=== PATIENT | male | born 1975 | race Caucasian/White ===

== ENCOUNTER 2016-10-13 16:11 | Inpatient (IN) | payer BC ==
[~2016-10-13 16:11] MED LIST: BRIDION 200MG/2ML IV ONE; DILAUDID 2 MG INJECTION IV ONE; DIPRIVAN 200 MG/20 ML IV ONE; Decadron 4 MG INJ IV ONE; Quelicin Fliptop 200 MG/10 ML IJ ONE; SUBLIMAZE 100 MCG/2 ML IV ONE; TORAdol 30 mg Injection IJ ONE; Versed 2 MG/2 ML Injection IV ONE; Zemuron 100 MG/10 ML IJ ONE; Zofran 4 MG/2 ML VIAL IV ONE
[2016-10-13] MEDS ORDERED: Zofran 4 MG/2 ML VIAL IV ONE (16:29)
[2016-10-13] MEDS ORDERED: Hydromorphone 1 mg/ml Ampule IV ONE (16:29)
[2016-10-13] MEDS ORDERED: Sodium Chloride 0.9% 1000 ML 1,000 ML IV SCH ×2 (16:30→18:15)
[2016-10-13] MEDS ORDERED: Zofran 4 MG/2 ML VIAL ONE (16:37)
[2016-10-13] MEDS ORDERED: Sodium Chloride 0.9% 1000 ML 1,000 ML ONE (16:37)
[2016-10-13] MEDS ORDERED: Hydromorphone 1 mg/ml Ampule ONE (16:37)
[2016-10-13 16:41] LABS: BASOPHIL % 0.1 % (0.0-0.4); Eosinophil % 1.5 % (0.00-5.0); Granulocytes % 81.8 % (36.0-66.0); Lymphocytes % 8.8 % (24.0-44.0); Mean Cell Volume 82.3 fl (78-100); Mean Corpuscular Hemoglobin 27.1 pg (26-32); Mean Platelet Volume 9.4 fl (6-9.5); Monocytes % 7.8 % (0.0-12.0); Platelet Count 283 K/mm3 (150-450); Red Blood Count 5.31 M/mm3 (4.1-5.6); Red Cell Distribution Width 13.9 % (11.5-14.0); White Blood Count 13.5 K/mm3 (4.0-10.5)
--- NOTE | 2016-10-13 16:53 | ERPHSYRPT ---
- History of Present Illness Time Seen by Provider: 10/13/16 16:14 Historian: patient, family Exam Limitations: no limitations Patient Subjective Stated Complaint: "I think that I pulled a muscle tuesday evening lifting wood." stated sharp pain that is revied with activity modification and aleve. points to mid abd all across as location of pain Triage Nursing Assessment: aox3, breathing easy unlabored, skin pink warm dry, steady gait Physician History: patient awoke with abdominal pain in am; thinks he may have pulled something as had abdominal pain worse when he moves or bends over; no trauma; was doing a lot of lifting and pulling this weekend; no N&V; appetite ok; BM and voids ok; no travel; no exposures; no fever; no prior hx Timing/Duration: today, gradual onset, worse Activities at Onset: rest Quality: aching Abdominal Pain Onset Location: RLQ (worst), epigastric (onset), generalized abdomen Pain Radiation: no radiation Severity of Pain-Max: severe Severity of Pain-Current: moderate Modifying Factors: Improves With: breathing, movement, palpation, position Associated Symptoms: heartburn Previous symptoms: no prior history Allergies/Adverse Reactions: No Known Drug Allergies Allergy (Unverified 01/17/15 18:19) Home Medications: No Reportable Medications [No Reported Medications] 10/13/16 [History] Hx Tetanus, Diphtheria Vaccination/Date Given: Yes Hx Influenza Vaccination/Date Given: No - Review of Systems Constitutional: No Symptoms Eyes: No Symptoms Ears, Nose, & Throat: No Symptoms Respiratory: No Cough, No Dyspnea, No Wheezing Cardiac: No Chest Pain, No Palpitations, No Syncope Abdominal/Gastrointestinal: Abdominal Pain, Nausea (slight), No Vomiting, No Diarrhea, No Constipation Genitourinary Symptoms: No Symptoms Musculoskeletal: No Symptoms Skin: No Symptoms Neurological: No Symptoms Psychological: No Symptoms Endocrine: No Symptoms Hematologic/Lymphatic: No Symptoms Immunological/Allergic: No Symptoms - Past Medical History Pertinent Past Medical History: No - Past Surgical History Past Surgical History: No - Social History Smoking Status: Current every day smoker Exposure to second hand smoke: No Alcohol Use: Socially Drug Use: none Patient Lives Alone: No Significant Family History: no pertinent family hx - Nursing Vital Signs Nursing Vital Signs: Initial Vital Signs Temperature 98.0 F 10/13/16 16:18 Pulse Rate 87 10/13/16 16:18 Respiratory Rate 16 10/13/16 16:18 Blood Pressure 125/78 10/13/16 16:18 O2 Sat by Pulse Oximetry 99 10/13/16 16:18 Pain Scale Pain Intensity 3 - Physical Exam General Appearance: moderate distress (abdominal pain) Eye Exam: PERRL/EOMI, eyes nml inspection, No photophobia Ears, Nose, Throat Exam: normal ENT inspection, TMs normal, pharynx normal, moist mucous membranes Neck Exam: normal inspection, non-tender, supple, full range of motion, No JVD Respiratory Exam: normal breath sounds, lungs clear, airway intact, No chest tenderness, No respiratory distress Cardiovascular Exam: regular rate/rhythm, normal heart sounds, capillary refill <2 sec, No murmur Gastrointestinal/Abdomen Exam: soft, normal bowel sounds (to slightly hyperactive), tenderness (RLQ>RUQ> epig and LLQ), guarding, rebound (suggests early), No pulsatile mass, No hernia, No hepatomegaly, No organomegaly Male Genitalia Exam: normal genitalia Rectal Exam: deferred Back Exam: normal inspection, normal range of motion, No CVA tenderness, No vertebral tenderness Extremity Exam: normal inspection, normal range of motion, No pedal edema Neurologic Exam: alert, oriented x 3, cooperative, community health advocate II-XII nml as tested, normal mood/affect, nml cerebellar function, nml station & gait, sensation nml Skin Exam: normal color, warm, dry, No rash SpO2 Interpretation: normal SpO2: 99 Oxygen Delivery: Room Air - Course Nursing assessment & vital signs reviewed: Yes - CT Exams Abdomen/Pelvis CT Interpretation: Tele-radiologist Report, appendicitis Ordered Tests: Active Orders 24 hr Category Date Time Status Re-Check Vital Signs STAT Care 10/13/16 16:29 Active ABDOMEN AND PELVIS W/0 CONTRAS [CT] Stat Exams 10/13/16 16:31 Completed AMYLASE Stat Lab 10/13/16 16:38 Completed CBC W DIFF Stat Lab 10/13/16 16:38 Completed CMP Stat Lab 10/13/16 16:38 Completed CULTURE,URINE Stat Lab 10/13/16 17:00 Received LIPASE Stat Lab 10/13/16 16:38 Completed UA W/ MICROSCOPIC Stat Lab 10/13/16 17:00 Completed Medication Summary Generic Name Dose Route Start Last Admin Trade Name Freq PRN Reason Stop Dose Admin Sodium Chloride 1,000 mls @ 100 mls/hr 10/13/16 16:30 10/13/16 16:38 Sodium Chloride 0.9% 1000 Ml IV 11/12/16 16:29 100 mls/hr .Q10H RAUL Administration Discontinued Medications Generic Name Dose Route Start Last Admin Trade Name Vincentq PRN Reason Stop Dose Admin Hydromorphone HCl 1 mg 10/13/16 16:29 10/13/16 16:38 Hydromorphone 1 Mg/Ml Ampule IV 10/13/16 16:30 1 mg STAT ONE Administration Hydromorphone HCl Confirm 10/13/16 16:37 Hydromorphone 1 Mg/Ml Ampule Administered 10/13/16 16:38 Dose 1 mg .ROUTE .STK-MED ONE Ondansetron HCl 4 mg 10/13/16 16:29 10/13/16 16:38 Zofran 4 Mg/2 Ml Vial IV 10/13/16 16:30 4 mg STAT ONE Administration Ondansetron HCl Confirm 10/13/16 16:37 Zofran 4 Mg/2 Ml Vial Administered 10/13/16 16:38 Dose 4 mg .ROUTE .STK-MED ONE Lab/Rad Data: Laboratory Result Diagrams 10/13/16 16:38 10/13/16 16:38 Laboratory Results 10/13/16 10/13/16 10/13/16 Range/Units 17:00 16:38 16:38 WBC 13.5 H (4.0-10.5) K/mm3 RBC 5.31 (4.1-5.6) M/mm3 Hgb 14.4 (12.5-18.0) gm/dl Hct 43.7 (42-50) % MCV 82.3 (78-100) fl MCH 27.1 (26-32) pg MCHC 33.0 (32-36) g/dl RDW 13.9 (11.5-14.0) % Plt Count 283 (150-450) K/mm3 MPV 9.4 (6-9.5) fl Gran % 81.8 H (36.0-66.0) % Lymphocytes % 8.8 L (24.0-44.0) % Monocytes % 7.8 (0.0-12.0) % Eosinophils % 1.5 (0.00-5.0) % Basophils % 0.1 (0.0-0.4) % Basophils # 0.02 (0-0.4) Sodium 140 (136-145) mEq/L Potassium 3.8 (3.5-5.1) mEq/L Chloride 103 (98-107) mEq/L Carbon Dioxide 26.9 (21-32) mEq/L Anion Gap 13.6 (5-15) MEQ/L BUN 10 (9-20) mg/dL Creatinine 1.01 (0.55-1.30) mg/dl Estimated GFR > 60 ML/MIN Glucose 103 (70-110) MG/DL Calcium 9.2 (8.5-10.1) mg/dL Total Bilirubin 0.60 (0.2-1.0) mg/dL AST 13 L (15-37) U/L ALT 18 (12-78) U/L Alkaline Phosphatase 112 (46-116) U/L Serum Total Protein 7.2 (6.4-8.2) gm/dL Albumin 3.8 (3.4-5.0) g/dL Amylase 54 (25-115) U/L Lipase 66 L (73-393) U/L Ur Collection Type VOID Urine Color YELLOW (YELLOW) Urine Appearance CLEAR (CLEAR) Urine pH 5.0 (5-6) Ur Specific [place] 1.015 (1.005-1.025) Urine Protein NEGATIVE (Negative) Urine Ketones NEGATIVE (NEGATIVE) Urine Blood 5-10 (0-5) Roberth/ul Urine Nitrite NEGATIVE (NEGATIVE) Urine Bilirubin SMALL (NEGATIVE) Urine Urobilinogen NORMAL (0-1) mg/dL Ur Leukocyte Esterase TRACE (NEGATIVE) Urine Microscopic RBC 2-5 (0-2) /HPF Urine Microscopic WBC 2-5 (0-5) /HPF Ur Epithelial Cells RARE (FEW) /HPF Urine Bacteria FEW (NEGATIVE) /HPF Urine Mucus SLIGHT (NEGATIVE) /HPF Urine Glucose NEGATIVE (NEGATIVE) mg/dL Specimen Received 10/13/16 1700 reviewed - Progress Progress: improved (after meds), re-examined (after meds and ct) Progress Note: 10/13/16 16:54 IV started, meds given; labs drawn; CT pending; at bedside; will recheck after meds and back form CT 10/13/16 17:28 labs and cT consistant with acute appendicitis; patient and family notified; DR Smith consulted and will take the patient to surgery;ATBs ordered; Discussed with .: Sarah Will see patient in: hospital (observation) Counseled pt/family regarding: lab results, diagnosis, need for follow-up, rad results - Departure Time of Disposition: 17:29 Departure Disposition: Observation Clinical Impression: Acute appendicitis Condition: Serious Critical Care Time: No Referrals: Provider,Unknown [Primary Care Provider] -
[2016-10-13 17:01] LABS: ALBUMIN 3.8 g/dL (3.4-5.0); ALKALINE PHOSPHATASE 112 U/L (46-116); ANION GAP 13.6 MEQ/L (5-15); BLOOD UREA NITROGEN 10 mg/dL (9-20); CHLORIDE 103 mEq/L (98-107); Carbon Dioxide 26.9 mEq/L (21-32); Glucose 103 MG/DL (70-110); LIPASE 66 U/L (73-393); Potassium 3.8 mEq/L (3.5-5.1); SGOT/AST 13 U/L (15-37); SGPT/ALT 18 U/L (12-78); SODIUM 140 mEq/L (136-145); Total Protein 7.2 gm/dL (6.4-8.2)
[2016-10-13 17:04] LABS: Bilirubin SMALL (NEGATIVE); Collection Type VOID; Glucose NEGATIVE (NEGATIVE); Leukocyte Esterase TRACE (NEGATIVE)
[2016-10-13 17:05] LABS: ADD URINE CULTURE? YES (NO); COMPLETE URINE MICROSCOPIC? YES
--- NOTE | 2016-10-13 17:10 | XRAY ---
Indication: Right lower pain. Possible appendicitis. Multiple contiguous axial images obtained through the abdomen and pelvis without contrast as ordered. Comparison: None Lung bases demonstrates minimal bibasilar dependent atelectasis and right lower lobe calcified granuloma. Heart is not enlarged. Noncontrasted stomach and bowel loops appear nonobstructed. Appendix is enlarged up to 18 mm in diameter with wall thickening and periappendiceal stranding favoring acute appendicitis. There is also a appendicolith at the base. Tiny right colic fluid but no walled off fluid collection or free air. Minimal sigmoid diverticulosis. Tiny 5 mm left lobe hepatic cyst/hemangioma. Remaining liver, gallbladder, pancreas, spleen, adrenal glands, kidneys, ureters, bladder, and aorta appear unremarkable for noncontrast exam. Osseous structures intact with mild lower lumbar degenerative disc disease. Impression: 1. CT findings consistent with acute appendicitis as detailed. Tiny free fluid and appendicolith but no walled off fluid collection or free air. 2. Minimal sigmoid diverticulosis and tiny hepatic cyst/hemangioma. CTDI 14.09
[2016-10-13 17:17] LABS: Bacteria FEW /HPF (NEGATIVE); Epithelial Cells RARE /HPF (FEW); Mucus SLIGHT /HPF (NEGATIVE)
[2016-10-13] MEDS ORDERED: Zofran 4 MG/2 ML VIAL IV PRN (18:11)
[2016-10-13] MEDS ORDERED: DILAUDID 2 MG INJECTION IV PRN (18:13)
[2016-10-13] MEDS ORDERED: MEFOXIN 1 Gm/ D5W 50 Ml** 1 G/50 ML ML IV SCH (18:15)
[2016-10-13] MEDS ORDERED: MEFOXIN 2 GM PREMIX** 2 GM/50 ML ML IV ONE (18:19)
[2016-10-13] MEDS ORDERED: MEFOXIN 2 GM PREMIX** 2 GM/50 ML ML IV SCH (19:00)
[2016-10-13] MEDS ORDERED: Lactated Ringers 1,000 ML IV SCH ×2 (19:30→20:00)
[2016-10-13] MEDS ORDERED: DILAUDID 2 MG INJECTION ONE (19:41)
[2016-10-13] MEDS ORDERED: Pepcid 20 MG VIAL IV ONE ×2 (19:42→20:00)
[2016-10-13] MEDS ORDERED: Lactated Ringers 1,000 ML IV ONE ×2 (19:42→20:29)
[2016-10-13] MEDS ORDERED: Sensorcaine 0.25% 10 ML ONE (20:29)
[2016-10-14] MEDS: Sodium Chloride 0.9% 1000 ML 1,000 ML IV SCH ×2 (00:22→12:56)
[2016-10-14] MEDS: FLAGYL 500 MG IVPB 500 MG/100 ML BAG IV SCH ×4 (00:23→21:38)
[2016-10-14] MEDS ORDERED: Zosyn 3.375GM/100 Ml D5W 100 ML IV SCH (01:30)
[2016-10-14] MEDS ORDERED: Zosyn 3.375GM/100 Ml D5W 3.375 GM/100 ML IVPB IV ONE (01:31)
[2016-10-14] MEDS: Zosyn 3.375GM/100 Ml D5W 3.375 GM/100 ML IVPB IV SCH ×4 (01:43→18:18)
[2016-10-14] MEDS: NORCO 5/325 MG PO PRN ×4 (04:36→21:37)
[2016-10-14] MEDS: MORPHINE SULFATE 4 MG INJ IV PRN ×3 (06:29→18:18)
--- NOTE | 2016-10-14 15:46 | OP ---
SURGERY DATE/TIME 10/13/2016 2223 PREOPERATIVE DIAGNOSIS: Acute appendicitis. POSTOPERATIVE DIAGNOSIS: Acute appendicitis with perforation. PROCEDURE: Laparoscopic appendectomy. SURGEON: Marcello Smith M.D. ANESTHESIA: General. INDICATIONS: The patient is a 41 year-old male who came to the emergency room with a couple day history of right lower quadrant abdominal pain. He was found to have acute appendicitis by radiologist and clinical findings. He was taken to surgery for laparoscopic appendectomy which was done without complication. DESCRIPTION OF PROCEDURE AND FINDINGS: The patient was taken to the OR, placed on the OR table in supine position. The abdomen was prepped and draped in the usual sterile fashion. A 1 cm subumbilical incision was made. Veress needle was introduced. The abdomen was insufflated with CO2 and the trocar was placed using Visiport. The camera was introduced and the remainder ports placed under direct visualization. The appendix was thick walled, inflamed. At the base an area of perforation. The mesoappendix was mobilized from the right lower quadrant and eventually stapled. Several reloads were used to staple through the thick mesoappendix. Finally we were able to dissect the base of the appendix with a blue reload fired at the base controlling the cecum quite nicely. The appendix was then introduced into EndoCatch bag and then removed from the 12 mm trocar site without difficulty. Once this was done the trocar was reinserted. Hemostasis inspected. A CATRACHO drain was left in the right lower quadrant and the pneumoperitoneum was released. The trocars removed. The 12 mm port was closed with 0 Vicryl for the fascia and 4-0 Vicryl to close the skin edges in subcuticular fashion. Dressing was applied. The patient tolerated this procedure well and was taken back to the recovery area in overall stable condition.
--- NOTE | 2016-10-14 15:52 | CONS ---
CONSULT DATE: 10/13/2016 REASON FOR CONSULT: Acute appendicitis. HISTORY: The patient is a 41 year-old who came to the emergency room complaining of right lower quadrant abdominal pain of at least 48 hours duration. He had been complaining of pain getting progressively worse and he was seen in the emergency room. He presented to the emergency room for evaluation. CT scan showed acute appendicitis. I was asked to see him in consultation for surgical evaluation and management. PAST MEDICAL HISTORY: Overall seems to be unremarkable. PAST SURGICAL HISTORY: Also unremarkable. PHYSICAL EXAMINATION: He is alert, oriented. HEENT: Pupils equal and normal reactive. NECK: Supple. COR: Regular rhythm. ABDOMEN: Tender in the right lower quadrant. EXTREMITIES: Within normal limits. No pedal edema. IMPRESSION: Acute appendicitis by clinical and radiological findings. PLAN: Proceed with laparoscopic appendectomy possible open.
[2016-10-15] MEDS: Zosyn 3.375GM/100 Ml D5W 3.375 GM/100 ML IVPB IV SCH ×4 (00:08→17:05)
[2016-10-15] MEDS: MORPHINE SULFATE 4 MG INJ IV PRN (00:08)
[2016-10-15] MEDS: Sodium Chloride 0.9% 1000 ML 1,000 ML IV SCH ×3 (02:41→14:52)
[2016-10-15] MEDS: NORCO 5/325 MG PO PRN ×4 (02:42→17:42)
[2016-10-15] MEDS: FLAGYL 500 MG IVPB 500 MG/100 ML BAG IV SCH ×2 (04:55→13:20)
[2016-10-15 17:12] VITALS: BP 106/67; PULSE 93; O2SAT 93
--- NOTE | 2016-10-20 13:56 | HP ---
CHIEF COMPLAINT: Acute appendicitis. HISTORY OF PRESENT ILLNESS: The patient is a 41 year-old who came to the emergency room complaining of right lower quadrant abdominal pain of at least 48 hours duration. He had been complaining of pain getting progressively worse and he was seen in the emergency room. He presented to the emergency room for evaluation. CT scan showed acute appendicitis. I was asked to see him in consultation for surgical evaluation and management. PAST MEDICAL HISTORY: Overall seems to be unremarkable. PAST SURGICAL HISTORY: Also unremarkable. PHYSICAL EXAMINATION: He is alert, oriented. HEENT: Pupils equal and normal reactive. NECK: Supple. COR: Regular rhythm. ABDOMEN: Tender in the right lower quadrant. EXTREMITIES: Within normal limits. No pedal edema. IMPRESSION: Acute appendicitis by clinical and radiological findings. PLAN: Proceed with laparoscopic appendectomy possible open.
--- NOTE | 2016-11-11 15:30 | DS ---
DISCHARGE DIAGNOSIS:1. BRIEF HISTORY: The patient was admitted with the diagnosis of acute appendicitis with perforation. Laparoscopic appendectomy was performed and his postoperative course was satisfactory. He had a mild ileus that resolved within the first 24-48 hours. His diet was advanced. He was continued on IV antibiotics and he was discharged home on 10/15/16. Follow-up will be in my office 1 week from discharge. He was scheduled to have his CATRACHO removed in the office and was given a script for oral antibiotics to take PO at home. Also, some [place] 5/325.
== END 2016-10-15 18:40 | disposition home or self-care (01) | DRG 340 ==
LOC: ED 16:11 → MED SURG 17:45 → OBSVTOIN 22:23
PROVIDERS: ADMIT Surgery; ATTEND Surgery
PROC: 0DTJ4ZZ Resection of Appendix, Percutaneous Endoscopic Approach (ICD-10-PCS; principal; 2016-10-13)
DX: K35.2 Acute appendicitis with generalized peritonitis (principal)
CPT/HCPCS: 00840; 36000; 36415; 74176; 80053; 81000; 82150; 83690; 85025; 87086; 88304; 96360; 96374; 96375; 99140; 99285; J0330; J0694; J1100; J1170; J1885; J2250; J2270; J2405; J2543; J2704; J3010; A9270-GY